=== PATIENT | male | born 1980 | race African-American/Black ===

== ENCOUNTER 2020-09-14 13:05 | Emergency (ER) | payer SELFPAY ==
[2020-09-14] MEDS ORDERED: Dexamethasone 10 MG/ML VIAL ONE (14:01)
[2020-09-14] MEDS ORDERED: Ketorolac Tromethamine 30 MG/ML VIAL ONE (14:01)
== END 2020-09-14 15:26 | disposition home or self-care (01) ==
LOC: ERS 13:05
DX: M54.42 Lumbago with sciatica, left side (principal); E78.5 Hyperlipidemia, unspecified; I10 Essential (primary) hypertension; Z79.899 Other long term (current) drug therapy
CPT/HCPCS: 96372; 99283; J1100; J1885

== ENCOUNTER 2020-12-05 09:21 | Emergency (ER) | payer SELFPAY ==
[2020-12-05] MEDS ORDERED: Dexamethasone 4 MG TAB ONE (11:22)
[2020-12-05] MEDS ORDERED: Ketorolac Tromethamine 30 MG/ML VIAL ONE ×2 (11:22→11:23)
[2020-12-05] MEDS ORDERED: Bicillin LA 2.4 MILL.UNITS/4 ML SYRINGE ONE (11:22)
[2020-12-05] MEDS ORDERED: Acetaminophen 500 MG TAB ONE (11:22)
[2020-12-05] MEDS ORDERED: Bicillin LA 1.2 MILLION UNITS/2 ML SYRINGE ONE (11:31)
== END 2020-12-05 13:10 | disposition home or self-care (01) ==
LOC: ERS 09:21
DX: J02.0 Streptococcal pharyngitis (principal); E78.5 Hyperlipidemia, unspecified; I10 Essential (primary) hypertension
CPT/HCPCS: 87430; 96372; 96374; J0561; J1885; J8540

== ENCOUNTER 2023-05-24 14:32 | Emergency (ER) | payer OTHER, SELFPAY ==
[2023-05-24] MEDS ORDERED: Boostrix 0.5 ML (Tdap) VIAL (>/=7 yrs of age) ONE (15:19)
[2023-05-24] MEDS ORDERED: Amoxicillin/Potassium Clav 875 MG TAB ONE (15:19)
== END 2023-05-24 16:47 | disposition home or self-care (01) ==
LOC: ERS 14:32 → EEVIPCON 14:32 → ERS 16:47
DX: S00.83XA Contusion of other part of head, initial encounter (principal); M79.645 Pain in left finger(s); M79.644 Pain in right finger(s); E78.5 Hyperlipidemia, unspecified; I10 Essential (primary) hypertension; Y04.1XXA Assault by human bite, initial encounter; Y92.149 Unspecified place in prison as the place of occurrence of the external cause
CPT/HCPCS: 12013; 90471; 90715